=== PATIENT | male | born 1985 | race Caucasian/White ===

== ENCOUNTER 2017-12-25 00:20 | Emergency (ER) | payer OTHER ==
[~2017-12-25] VITALS: Ht 165.1 cm; Wt 115.0 kg
--- NOTE | 2017-12-25 00:45 | PHYS DOC ---
Adult General HPI HPI Patient is a 32 year old M who presents with right lower quadrant abdominal pain that started tonight. Patient states the pain started periumbilical and has shooting pain to the right lower quadrant. Patient states that for the past 2 weeks he's had diarrhea with abdominal cramps however that stopped for approximately 3 days and then tonight the pain started. Patient is nauseous with no vomiting. Patient denies any fevers. Patient denies any previous abdominal surgeries. Patient denies any chest pain returns of breath. Patient is no other complaints. Review of Systems Review of Systems GEN: Denies fevers, chills, sweats HEENT: Denies blurred vision, sore throat CV: Denies chest pain RESP: Denies shortness of air, cough GI: Right lower quadrant abdominal pain with nausea NEURO: Denies confusion, dizziness MSK: Denies weakness, joint pain/swelling All other systems were reviewed and found to be within normal limits, except as documented in this note. Current Medications Current Medications Current Medications Medications (Trade) Dose Ordered Sig/Omar Start Time Stop Time Status Last Admin Dose Admin Ondansetron HCl (Zofran) 4 mg 1X ONCE 12/25/17 00:45 12/25/17 00:46 UNV Sodium Chloride 1,000 ml @ 1,000 mls/hr 1X ONCE 12/25/17 00:45 12/25/17 01:44 UNV Physical Exam Physical Exam GEN.: No apparent distress. Alert and oriented. HEENT: Head is normocephalic, atraumatic NECK: Supple. LUNGS: CTAB. HEART: RRR, S1, S2 present. Peripheral pulses intact ABDOMEN: Soft, tenderness palpation periumbilical and right lower quadrant tenderness to palpation with no rebound, no guarding, no abdominal distention. Positive bowel sounds. EXTREMITIES: Without any cyanosis. NEUROLOGIC: Normal speech, normal tone PSYCHIATRIC: Normal affect, normal mood. SKIN: No ulcerations Current Patient Data Vital Signs Laboratory Tests Test 12/25/17 01:00 12/25/17 01:15 White Blood Count 12.0 x10^3/uL Red Blood Count 5.66 x10^6/uL Hemoglobin 16.3 g/dL Hematocrit 47.9 % Mean Corpuscular Volume 85 fL Mean Corpuscular Hemoglobin 29 pg Mean Corpuscular Hemoglobin Concent 34 g/dL Red Cell Distribution Width 13.1 % Platelet Count 187 x10^3/uL Neutrophils (%) (Auto) 59 % Lymphocytes (%) (Auto) 18 % Monocytes (%) (Auto) 7 % Eosinophils (%) (Auto) 16 % Basophils (%) (Auto) 0 % Neutrophils # (Auto) 7.1 x10^3uL Lymphocytes # (Auto) 2.2 x10^3/uL Monocytes # (Auto) 0.8 x10^3/uL Eosinophils # (Auto) 1.9 x10^3/uL Basophils # (Auto) 0.0 x10^3/uL Sodium Level 140 mmol/L Potassium Level 3.8 mmol/L Chloride Level 102 mmol/L Carbon Dioxide Level 31 mmol/L Anion Gap 7 Blood Urea Nitrogen 15 mg/dL Creatinine 1.3 mg/dL Estimated GFR (Cockcroft-Gault) 64.0 BUN/Creatinine Ratio 12 Glucose Level 124 mg/dL Calcium Level 9.2 mg/dL Total Bilirubin 0.5 mg/dL Aspartate Amino Transf (AST/SGOT) 26 U/L Alanine Aminotransferase (ALT/SGPT) 53 U/L Alkaline Phosphatase 53 U/L Total Protein 7.5 g/dL Albumin 3.6 g/dL Albumin/Globulin Ratio 0.9 Lipase 157 U/L Urine Collection Type Unknown Urine Color Yellow Urine Clarity Clear Urine pH 5.5 Urine Specific [place] >=1.030 Urine Protein Neg Urine Glucose (UA) Neg mg/dL Urine Ketones (Stick) Neg mg/dL Urine Blood Neg Urine Nitrite Neg Urine Bilirubin Neg Urine Urobilinogen Dipstick 0.2 mg/dL Urine Leukocyte Esterase Neg Urine RBC 0 /HPF Urine WBC Occ /HPF Urine Squamous Epithelial Cells None /LPF Urine Bacteria 0 /HPF Current Medications Medications (Trade) Dose Ordered Sig/Omar Route PRN Reason Start Time Stop Time Status Last Admin Dose Admin Sodium Chloride 1,000 ml @ 1,000 mls/hr 1X ONCE IV 12/25/17 01:00 12/25/17 02:00 DC 12/25/17 01:44 Ondansetron HCl (Zofran) 4 mg 1X ONCE IV 12/25/17 01:00 12/25/17 01:01 DC 12/25/17 01:44 Iohexol (Omnipaque 300 Mg/ml) 75 ml 1X ONCE IV 12/25/17 01:00 12/25/17 01:01 DC 12/25/17 01:17 Info (Do NOT chart on this entry -- for MONITORING) 1 each PRN DAILY PRN MC SEE COMMENTS 12/25/17 01:00 12/27/17 00:59 EKG EKG [] Radiology/Procedures Radiology/Procedures CT Abd and Pelvis: IMPRESSION: No evidence of appendicitis or hydronephrosis. There are some mildly dilated loops of small bowel in the upper abdomen with more distal decompression. This is a mild finding with the loops are only slightly dilated but would correlate with symptoms in the region to ensure that there is not a pathologic cause such as a partial small bowel obstruction. This could also just be secondary to the phase of peristalsis.[] Course & Med Decision Making Course & Med Decision Making Pertinent Labs and Imaging studies reviewed. (See chart for details) ED course: Patient was seen and examined emergency room basic blood work was ordered A CT scan abdomen pelvis On reexamination patient still having periumbilical pain with right lower quadrant. I made patient aware of CT findings and plan to place in observation for possible early appendicitis and a partial small bowel obstruction 0213: Discussed CC/HP/PMH with Dr. Suero and recommends admit 0230: Discussed CC/HP/PMH with Dr. Ambrose and recommends admit and would like a lactic acid checked on the patient[][] MDM: After reviewing the chart, CC/HPI/PMH, physical exam, [lab results], [ radiological results], I have concerns base of the patient's physical exam findings and CT findings he could have early appendicitis or early partial small bowel junction therefore will admit the patient for observation at [facility] to medicine with surgery on consult. [] Dragon Disclaimer Dragon Disclaimer This electronic medical record was generated, in whole or in part, using a voice recognition dictation system. Departure Departure: Impression: Primary Impression: Right lower quadrant abdominal pain Additional Impression: Partial small bowel obstruction Disposition: 02 XFER S[facility]M HOSP (Dr Suero accepting ) Condition: STABLE Referrals: DEWARDO BUNCH MD (PCP) Problem Qualifiers MAGALY ASENCIO DO Dec 25, 2017 00:45
[2017-12-25] MEDS ORDERED: CONTRAST GIVEN MC PRN (01:00)
[2017-12-25 01:13] LABS: BASO % 0 % (0-3); EOS # 1.9 x10^3/uL (0.0-0.7); EOS % 16 % (0-3); HEMATOCRIT 47.9 % (39.0-53.0); HEMOGLOBIN 16.3 g/dL (13.0-17.5); LYMPH # 2.2 x10^3/uL (1.0-4.8); LYMPH % 18 % (24-48); MEAN CORPUSCULAR HEMOGLOBIN 29 pg (25-35); MEAN CORPUSCULAR HGB CONC 34 g/dL (31-37); MEAN CORPUSCULAR VOLUME 85 fL (79-100); MONO # 0.8 x10^3/uL (0.0-1.1); MONO % 7 % (0-9); NEUT # 7.1 x10^3uL (1.8-7.7); NEUT % 59 % (31-73); PLATELET COUNT 187 x10^3/uL (140-400); RED BLOOD COUNT 5.66 x10^6/uL (4.30-5.70); RED CELL DISTRIBUTION WIDTH 13.1 % (11.5-14.5)
[2017-12-25] MEDS: IOHEXOL 300 MG/ML 75 ML VIAL. IV ONE (01:17)
[2017-12-25 01:27] LABS: ALBUMIN 3.6 g/dL (3.4-5.0); ALBUMIN/GLOBULIN RATIO 0.9 (1.0-1.7); CALCIUM 9.2 mg/dL (8.5-10.1); CREATININE 1.3 mg/dL (0.7-1.3); POTASSIUM 3.8 mmol/L (3.5-5.1); TOTAL BILIRUBIN 0.5 mg/dL (0.2-1.0); TOTAL PROTEIN 7.5 g/dL (6.4-8.2)
[2017-12-25 01:36] LABS: BACTERIA,URINE 0 /HPF (0-FEW); BILIRUBIN,URINE NEG (NEG); CLARITY,URINE CLEAR; COLOR,URINE YELLOW; GLUCOSE,URINE NEG (NEG); NITRITE,URINE NEG (NEG); RBC,URINE 0 /HPF (0-2); UROBILINOGEN,URINE 0.2 mg/dL (0.2 mg/dL); WBC,URINE OCC /HPF (0-4)
[2017-12-25] MEDS: IV NORMAL SALINE 1,000ML 1,000 ML IV ONE ×2 (01:44→02:51)
[2017-12-25] MEDS: ONDANSETRON PF 4 MG/2 ML VIAL. IV ONE (01:44)
--- NOTE | 2017-12-25 02:03 | RAD ---
INDICATION: RLQ Pain and tenderness, diarrhea
Gave Omni 300 75ml IV - tolerated well
no previous for comparison
no hx of any abdominal surgeries or medical conditions COMPARISON: None. TECHNIQUE: Axial CT images obtained through the abdomen and pelvis with contrast. One or more of the following individualized dose reduction techniques were utilized for this examination: 1. Automated exposure control; 2. Adjustment of the mA and/or kV according to patient size; 3. Use of iterative reconstruction technique. FINDINGS: Abdominal aorta is not aneurysmal. Liver is low-attenuation. Fatty infiltration is possible No peripancreatic fluid collection. Spleen unremarkable. No left-sided hydronephrosis. Urinary bladder is decompressed. No right-sided hydronephrosis. The appendix is not inflamed. There is some degenerative changes the spine with disc osteophyte complexes. Very mild wedging of T10 and T11 vertebral bodies although these could be related to degenerative changes or congenital. There are some prominent loops of small bowel within the upper abdomen measuring up to about 27 mm. IMPRESSION: No evidence of appendicitis or hydronephrosis. There are some mildly dilated loops of small bowel in the upper abdomen with more distal decompression. This is a mild finding with the loops are only slightly dilated but would correlate with symptoms in the region to ensure that there is not a pathologic cause such as a partial small bowel obstruction. This could also just be secondary to the phase of peristalsis. Electronically signed by: Juliano Arvizu MD (12/25/2017 1:59 AM) [facility]
[2017-12-25 03:00] VITALS: BP 112/76
== END 2017-12-25 03:31 | disposition short-term general hospital (02) ==
LOC: ER 00:20
DX: K56.690 Other partial intestinal obstruction (principal)
CPT/HCPCS: 36415; 74177; 80053; 81001; 83605; 83690; 85025; 96361; 96374; 99285; J2405; Q9967; J7030